=== PATIENT | female | born 1960 | race Caucasian/White ===

== ENCOUNTER → 2020-07-29 09:20 | Outpatient (BNVA) | payer MEDICARE, SELFPAY | PROVIDERS: PCP Internal Medicine; Visit Provider Anesthesiology | DX: M96.1 Postlaminectomy syndrome, not elsewhere classified (principal); M54.81 Occipital neuralgia; M47.812 Spondylosis without myelopathy or radiculopathy, cervical region; M50.30 Other cervical disc degeneration, unspecified cervical region; G89.4 Chronic pain syndrome; Z79.899 Other long term (current) drug therapy | CPT/HCPCS: 99212 ==